=== PATIENT | male | born 1990 | race Caucasian/White ===

== ENCOUNTER 2020-05-16 05:50 | Emergency (ER) | payer OTHER, SELFPAY ==
--- NOTE | ~2020-05-16 | XR_ITS ---
EXAMINATION: XR CHEST CLINICAL INFORMATION: Shortness of breath COMPARISON: Chest radiographs 07/22/2017, 05/17/2017 TECHNIQUE: Portable upright AP view of the chest was obtained. FINDINGS: There is no airspace consolidation or groundglass opacity. No pneumothorax or pneumomediastinum or effusion. The heart is normal in size. The costophrenic sulci are clear. The hilar and mediastinal contours and bony structures are unremarkable. XR/XR chest 1V IMPRESSION: Unremarkable examination.
[2020-05-16 06:00] VITALS: BP 136/71; PULSE 75; RESP 18; TEMP 36.6; O2SAT 96; BMI 20.7
--- NOTE | 2020-05-16 06:25 | ED_ITS ---
HPI - Asthma General Chief Complaint: Asthma Stated Complaint: ASTHMA Time Seen by Provider: 05/16/20 06:23 Source: patient Mode of arrival: ambulatory History of Present Illness HPI Narrative: This is a 30-year-old male with history of asthma and poly substance use who presents with 2 hours of worsening shortness of breath not associated with fevers, chills, GI symptoms, or symptoms. Patient states that he was recently homeless for the past couple of days and has had limited ability to sleep and also endorses he used cocaine and heroin several hours ago. Related Data Allergies Allergy/AdvReac Type Severity Reaction Status Date / Time walnut Allergy Unknown SWELLING Unverified 11/23/19 15:58 Review of Systems Review of Systems: Pertinent positives and negatives as stated in HPI 10 point review of systems is otherwise negative. PMFSH Past Medical History Source: nursing notes reviewed Medical History Asthma Social History Social History Advance Directives: No Advance Directives Information Provided: No Physical Exam Vital Signs: Vital Signs: Last Vital Signs Temp 97.8 F 05/16/20 06:00 Pulse 75 05/16/20 06:00 Resp 18 05/16/20 06:00 BP 136/71 05/16/20 06:00 Pulse Ox 96 05/16/20 06:00 Body Mass Index 20.7 VITAL SIGNS: Reviewed. GENERAL: Well developed, well nourished, in no acute distress. HEAD: Normocephalic/atraumatic, EYES: PERRLA, EOMI EARS: Ext canals without abnormality, TMs non-bulging and non-erythematous NOSE: Nasal congestion bilaterally OROPHARYNX: no oral lesions noted, posterior pharynx clear, moist mucosa NECK: Supple, no adenopathy LUNGS: Bilateral expiratory wheezing without noted retractions or tachypnea. Sp O2<96> CARDIOVASCULAR: Regular rate and rhythm without noted murmurs ABDOMEN: Soft, non-tender, non-distended with bowel sounds. LEFT HAND: Cracked skin noted at the 5th inner MCP SKIN: Inspection of the skin reveals no rashes NEUROLOGIC: Drowsiness and oriented x 4. Course Course Course Narrative: This is a 30-year-old male with history and clinical presentation consistent with mild asthma exacerbation without noted increase in work of breathing. Possible pneumonia. -labs, albuterol, Solu-Medrol, COVID testing, chest x-ray, urine toxicology Signed out to Dr. Simpson
[2020-05-16] MEDS: Albuterol Sulfate (0.083%) 2.5 MG/3 ML VIAL.NEB 5 MG INHALE (06:44)
[2020-05-16 06:49] VITALS: PULSE 86; O2SAT 96
[2020-05-16 06:51] LABS: MANUAL DIFF FLAG NO
[2020-05-16 06:52] LABS: Basophils Absolute Auto 0.1 X10*3/uL (0.0-0.2); Basophils Percent Auto 0.7 % (0-2); Eosinophils Absolute Auto 1.2 X10*3/uL (0.0-0.4); Eosinophils Percent Auto 12.2 % (0-4); Hematocrit 40.2 % (42-52); Hemoglobin 13.8 g/dl (14.0-18.0); Imm Gran Abs Auto 0.02 X10*3/uL (0.00-0.03); Imm Gran Pct Auto 0.2 % (0.0-0.4); Lymphocytes Percent Auto 20.2 % (20-40); Mean Corpuscular HGB Conc 34.3 g/dl (31.0-36.0); Mean Corpuscular Hemoglobin 31.2 pg (27.0-33.0); Mean Corpuscular Volume 90.7 fL (80-98); Mean Platelet Volume 9.6 fL (9.4-12.4); Monocytes Absolute Auto 0.6 X10*3/uL (0.1-1.2); Monocytes Percent Auto 6.4 % (2-11); Neutrophils Percent Auto 60.3 % (45-73); Platelet Count 323 X10*3/uL (160-400); Red Blood Count 4.43 X10*6/uL (4.60-5.80); Red Cell Distribution Width 11.9 % (11.0-16.0)
[2020-05-16] MEDS: methylPREDNISolone Sod Succ 125 MG/2 ML VIAL IVPUSH (06:52)
--- NOTE | 2020-05-16 07:30 | PC.NURSE ---
report taken from gayla estrella pt here for asthma exac, recently out of jail. lung sounds w scant wheezing in lung gomez, getting breathing tx from resp. medicated w steroids per emar. pt intermittently falling asleep during assessment, asked to stay awake and breath regularly. pt admits to heroin use. requiring frequent reminder to breath d/t spo2 <92% on ra. provider aware.
[2020-05-16 07:32] LABS: Alanine Aminotransferase 10 U/L (0-40); Albumin Level 3.9 g/dL (3.5-5.0); Alkaline Phosphatase 89 U/L (39-117); Anion Gap 8 (12-20); Aspartate Amino Transferase 19 U/L (5-37); Bilirubin Total 0.4 mg/dL (0.0-1.0); Blood Urea Nitrogen 6 mg/dL (9-16); Calcium 8.8 mg/dL (8.4-10.2); Carbon Dioxide 32 mmol/L (22-29); Chloride 102 mmol/L (96-108); Creatinine Clr Calc Pharmacy 125.9; Estimated Glomerular Filt Rate > 60; Glucose Random 106 mg/dL (60-115); Potassium 3.6 mmol/L (3.3-5.1); Sodium 138 mmol/L (135-145); Total Protein 6.8 g/dL (6.5-8.0)
[2020-05-16 08:02] LABS: Influenza A PCR NEGATIVE (Negative); Influenza B PCR NEGATIVE (Negative); Resp Syncy Virus RNA Qual PCR NEGATIVE (Negative); SARS COV2 PCR INHOUSE NEGATIVE (Negative)
--- NOTE | 2020-05-16 08:55 | PC.NURSE ---
pt resting in stretcher, requiring frequent encouragement to wake up and breath, pt is arousable to tactile and verbal stimuli together, desats to low 90s w/o encouragement. pt resistant to wearing oxygen, agitated w this rn expressing he feels this rn is making assumptions about him. pt admitted to triage nurse use of heroin and cocaine. pt sts he is tired, this rn explaining that tired peoples respiratory drive does not slow down. pt frequently returning to sleep. provider aware. medical workup is negative.
--- NOTE | 2020-05-16 09:02 | PC.NURSE ---
provider would like to hold off on narcan for pt. pt given 1l by nc for comfort, spo2 sat up to 95% on 1l.
[2020-05-16 09:03] VITALS: BP 120/89; PULSE 68; RESP 12; O2SAT 90; O2SAT 91
[2020-05-16 09:06] VITALS: PULSE 66; O2SAT 96
[2020-05-16 11:10] VITALS: BP 123/71; PULSE 67; RESP 14; TEMP 36.7; O2SAT 95
--- NOTE | 2020-05-16 11:14 | MHC.CARE ---
Call from patient's mother. She said that her son has been trying to get into a detox and is looking for help. Information passed to Transmission Maintenance Supervisor who will follow up with patient.
--- NOTE | 2020-05-16 11:19 | MHC.RECOVSUP ---
? Reason for consult:Continuity of care o Current location: ED14 o Identified substance use concern: Heroin - Overdose - Support ? Intervention o o Community resources provided o Harm reduction discussion ? Plan: o Referral to [facility] o Patient to follow up with [facility] after discharge ? Additional information: pt states he's not ready pt under the influence of heroin and cocaine, last use was this morning. left patient with community resources for his addiction and homelessness.
[2020-05-16] MEDS: Naloxone HCl 2 MG/2 ML SYRINGE 1 MG IVPUSH (12:03)
--- NOTE | 2020-05-16 12:06 | PC.NURSE ---
Pt lethargic in bed. Respirations of 9. Very drowsy, nodding off during conversation. Unable to maintain SPo2 without supplemental oxygen. Medicated per MAY.
--- NOTE | 2020-05-16 12:14 | PC.NURSE ---
Pt awake and agitated. Explain to pt why he was medicated with narcan. Pt remains agitated, swearing to staff members. Pt in no apparent distress. Respirations even and unlabored at an appropriate rate. Skin color within normal limits for pt.
--- NOTE | 2020-05-16 12:35 | PC.NURSE ---
Pt continues to call this rn and other staff member names, refusing VS. Requested and given phone to call his mother. Pt is awake, alert, oriented x3. Yawning frequently, but in no apparent distress, rr even and unlabored.
--- NOTE | 2020-05-16 12:41 | PC.NURSE ---
Pt refusing to leave, states You narcanned me, you bitch , security at bedside.
--- NOTE | 2020-05-16 12:52 | PC.NURSE ---
pt has been discharged, resistant to leaving. had <1mg narcan iv. pt fully alert, sts feeling nauseous. no vomitting noted. pt yelling about being narcanned, pt explained that pt has not been arousable and requiring supplemental 02. pt refusing to leave although pt has been reevaled by provider and cleared after medical workup. pt given phone and assisted resources to find housing, which pt was complaining i have no where to go . pt mother on phone w this rn, pt allowing this rn to update her on course of care. mother sts she will be here to pick pt up. pt being escorted to waiting room w smooth steady gait w security. pt verbally abusive w this rn.
== END 2020-05-16 12:56 | disposition home or self-care (01) ==
PROVIDERS: Student in an Organized Health Care Education/Training Program; Emergency Provider Emergency Medicine Emergency Medical Services
DX: J45.31 Mild persistent asthma with (acute) exacerbation (principal); Z20.822 Contact with and (suspected) exposure to COVID-19
CPT/HCPCS: 0241U; 36415; 71045; 80053; 85025; 94640; 96374; 96375; 99285; J2930

== ENCOUNTER 2024-07-06 02:01 | Emergency (ER) | payer OTHER, SELFPAY ==
[2024-07-06] VITALS (9 sets, daily range): BP systolic 85–132; BP diastolic 46–95; PULSE 42–76; RESP 12–20; TEMP 36.2–36.7; O2SAT 94–100; BMI 21.3
--- NOTE | 2024-07-06 | ECG_ITS ---
Test Reason : OVERDOSE Blood Pressure : */* mmHG Vent. Rate : 43 BPM Atrial Rate : 43 BPM P-R Int : 144 ms QRS Dur : 90 ms QT Int : 446 ms P-R-T Axes : 63 65 47 degrees QTcB Int : 376 ms Marked sinus bradycardia Abnormal ECG No previous ECGs available Referred By: Generic ED Physician Electronically Signed By: Andrei Castorena
--- NOTE | 2024-07-06 09:19 | PC.NURSE ---
Assumed care of pt at 0700. Pt resting quietly in bed, mom at bedside, respirations even and unlabored, no increased wob/sob, appears in no distress, sinus sanju on playground monitor, HR 45s-50s, BP 90s/50s. MD Rowe made aware of pts vitals. Verbal order for 1L NS- pt refused IV placement and labs, MD Rowe aware. Pt verbalized he will try PO food/liquids. Ambulating to bathroom independently with steady gait. Denies cp/sob/dizziness. Placed back in bed, given snacks/fluids. BP cycling to monitor pt. Call huitron within reach, all needs met at this time.
--- NOTE | 2024-07-06 09:51 | ED_ITS ---
HPI - General Adult General Chief complaint: Overdose Stated complaint: OD Time Seen by Provider: 07/06/24 07:02 Source: patient Mode of arrival: EMS Limitations: no limitations History of Present Illness HPI narrative: This is a 34-year-old man with a past medical history of asthma, polysubstance use who is brought in by EMS after being found in a car minimally responsive status post Narcan administration x2. Patient endorses substance use. He is not forthcoming with details. He states no alcohol use. He states no SI/HI. He states no fever, headache, neck pain, chest pain, dyspnea, abdominal pain, urinary symptoms, nausea/vomiting, changes to bowel habits, back pain, syncope or trauma. He states no AH/VH. Related Data Previous Rx's ?Medication ?Instructions ?Recorded albuterol sulfate 90 mcg/actuation 2 inh inhalation Q4H Wheezing, 05/16/20 aerosol inhaler shortness of breath #8.5 grams prednisone 20 mg tablet 60 mg (3 x 20 mg) PO DAILY 5 days 05/16/20 #15 tabs Allergies Allergy/AdvReac Type Severity Reaction Status Date / Time walnut Allergy Unknown SWELLING Verified 07/06/24 02:22 Review of Systems Review of Systems: ROS as per HPI [facility] Past Medical History Medical History Asthma Social History Social History Alcohol intake: never Smoked in Last 30 Days: No Use of substances other than those prescribed or required for medical reasons: No Substance Use Type: Crack/Cocaine, Heroin and Marijuana Advance Directives: No Advance Directives Information Provided: Yes Physical Exam ED Vital Signs: Vital Signs - 24 hr 07/06/24 02:14 07/06/24 04:09 07/06/24 06:21 Temperature 97.2 F 97.2 F 97.2 F Pulse Rate 47 L 53 46 L Respiratory Rate 12 20 20 Blood Pressure 130/95 H 104/69 113/80 Pulse Oximetry 98 96 95 Oxygen Delivery Method Room Air Room Air Room Air 07/06/24 07:31 07/06/24 09:14 07/06/24 12:34 Temperature 98.0 F 98.0 F Pulse Rate 50 43 L 42 L Respiratory Rate 19 15 20 Blood Pressure 96/59 L 92/54 L 85/51 L Pulse Oximetry 95 95 94 Oxygen Delivery Method Room Air Room Air Room Air 07/06/24 16:40 Temperature Pulse Rate 76 Respiratory Rate 20 Blood Pressure 101/46 L Pulse Oximetry 96 Oxygen Delivery Method Room Air BMI result Body Mass Index 21.3 Gen: NAD, somnolent, awakes easily to voice, answering questions and following commands HEENT: NCAT, EOMI, normal conjunctiva CV: Bradycardic rate, regular rhythm Pulm: CTAB, no increased work of breathing GI: Soft, NTND, no rebound, guarding or rigidity MSK: BUE/BLE compartments are soft Neuro: CN 2-12 grossly intact, no motor or sensory deficits Medications Administered Discontinued Medications Generic Name Dose Route Start Last Admin Trade Name Quintonq PRN Reason Stop Dose Admin Sodium Chloride 1,000 mls @ 999 mls/hr 07/06/24 07:45 07/06/24 08:26 Ns IV 07/06/24 08:45 Not Given .Q1H1M LUBA Naloxone HCl 8 mg 07/06/24 16:00 07/06/24 16:37 Naloxone Hcl Nasal Take Home 4 Mg Jackson NOSTRILALT 07/06/24 16:01 8 mg ONCE ONE Administration Medical Decision Making Medical Decision Making MDM Narrative: Differential diagnosis includes, but is not limited to polysubstance use, unintentional overdose. Patient is afebrile and hemodynamically stable on room air albeit at times bradycardic and with soft blood pressures although mentating well and easily awakens to verbal stimuli. I suspect that this is secondary to recent opiate use, which resolves with period of observation and prior to discharge. Exam is benign and reassuring. On re-examination, patient is well-appearing and in no acute distress. ?Patient states symptoms have resolved. ?Patient is awake, alert, tolerating oral intake and ambulating independently with stable vital signs. He has been observed in the emergency room for several hours and has demonstrated hemodynamic stability and no sequelae status post Narcan administration. There is no indication for further emergent evaluation in this otherwise well-appearing patient as above. ?Patient is provided written and verbal instructions, educational materials, recommendations for outpatient follow-up, Narcan take-home package, strict return precautions and teach back is performed. ?Patient states understanding and agreement with plan of care. ?Patient is discharged home in stable and improved condition. Critical Care Time: A total of 45 minutes spent in direct patient care with coordinating critical resuscitation, procedures, reviewing records, discussing with consultants, reviewing labs, and/or managing patient. Admission/Observation Consideration of admission/observation: Escalation of care including admissi on/observation considered Consult Healthcare Provider Management of the patient was discussed with: Segment Block Layer I discussed with loans consultant addiction medicine, Natalia Parham, and patient ultimately refused consult. He denies wanting helping with substance use. Lab Data MDM Lab Attestation statement: I reviewed the patient's lab results. Urine drug screen positive for opiates, fentanyl and cocaine Labs: Lab Results 07/06/24 Range/Units 16:22 Urine Opiates Screen POSITIVE H (Not Detect) Ur Buprenorphine Scrn Not Detected (Not Detect) ng/mL Ur Oxycodone Screen Not Detected (Not Detect) ng/mL Urine Methadone Screen Not Detected (Not Detect) ng/mL Urine Fentanyl Screen POSITIVE H (Not Detect) Ur Barbiturates Screen Not Detected (Not Detect) Ur Phencyclidine Scrn Not Detected (Not Detect) Ur Amphetamines Screen Not Detected (Not Detect) U Benzodiazepines Scrn Not Detected (Not Detect) Urine Cocaine Screen POSITIVE H (Not Detect) U Marijuana (THC) Screen Not Detected (Not Detect) Independent Interpretation I performed an independent interpretation of an: EKG Interpretation: Her my interpretation, EKG demonstrates a sinus bradycardia at 43 beats per minute, W[place] 144, QRS 90, QTC 376, no STEMI Discharge Plan Discharge Clinical Impression: Drug overdose Patient Disposition: Home, Self-Care Instructions: Adult Overdose (ED) Additional Instructions: Overdose You were seen in our Emergency Department for an overdose today. You received narcan in order to reverse the effects of overdose. Narcan only lasts about 45 min to 1 hour in the system. You may have been given narcan to take home with you today, please keep it near you if you are going to use again, so others can use it if needed.? The number one risk for fatal overdose is using alone? [employer] is a / hotline where you can be on the phone with someone while you use, and they can call for help if they suspect an overdose: [phone] Things to look out for when you leave include severe vomiting or diarrhea, headaches, muscle cramps, fever, coughing, chest pain, or if you feel so short of breath you cannot walk to the bathroom. Please seek care and return any time for worsening symptoms.? You may have been provided with safer injection?items, please take time to take care of YOU and your health. Use new supplies whenever possible to lessen the chances of infections and other illnesses.? If you need more supplies, please go [facility],? [address] [place] [address] OR you can call or text to coordinate delivery of safer supplies. If you decide you want to stop or cut down on how much you?re using, please call the numbers on the list provided to you or you can come to our outpatient Addiction Treatment office [facility] (M-F 9am-5p) [address] [place] [address], [facility] [address] [place], [place]. [phone] Prescriptions: No Action prednisone 20 mg tablet 60 mg PO DAILY 5 Days Qty: 15 0RF albuterol sulfate 90 mcg/actuation HFA aerosol inhaler 2 inh inhalation Q4H Qty: 8.5 0RF Print Language: Uzbek
--- NOTE | 2024-07-06 12:36 | PC.NURSE ---
Pt BP now 80s/50s, asymptomatic. MD Rowe aware. This RN sat with pt and provided emotional support for IV placement d/t anxiety. Pt confused to decline IV placement- unable to express to this RN what he is anxious about. MD Rowe made aware. Pt states he will drink/eat PO but falls back asleep easily. Pt was able to drink 2 cans of nakia jose guadalupe, encouraged to drink more fluids. Provider aware of low HR and BPs.
--- NOTE | 2024-07-06 15:07 | PC.NURSE ---
6023 late entry: attempted to gain IV access on pt, pt continues to refuse to have an IV at this time. informed of risks of low BP and HR and need for further intervention to stabilize BP through IV access. Dr Rowe made aware of pts refusal. no new orders
--- NOTE | 2024-07-06 15:42 | MHC.EDTECH ---
pt refusing bloodwork, rn and provider aware
[2024-07-06] MEDS: Naloxone HCl Nasal TAKE HOME 4 MG SPRAY 8 MG NOSTRILALT (16:37)
[2024-07-06 16:39] LABS: Amphetamine Screen Urine Not Detected (Not Detect); Barbiturates, Urine Not Detected (Not Detect); Benzodiazepines Screen Urine Not Detected (Not Detect); Buprenorphine Scr Not Detected (Not Detect); Cannabinoid Screen Urine Not Detected (Not Detect); Cocaine Screen Urine POSITIVE (Not Detect); Fentanyl, urine POSITIVE (Not Detect); Methadone Screen, Urine Not Detected (Not Detect); Opiate Screen Urine POSITIVE (Not Detect); Oxycodone Screen Urine Not Detected (Not Detect); Phencyclidine Screen Urine Not Detected (Not Detect)
== END 2024-07-06 16:57 | disposition home or self-care (01) ==
PROVIDERS: Emergency Provider Emergency Medicine; PCP Family Medicine
DX: T40.1X1A Poisoning by heroin, accidental (unintentional), initial encounter (principal); R40.4 Transient alteration of awareness; Y92.89 Other specified places as the place of occurrence of the external cause; F14.10 Cocaine abuse, uncomplicated; R00.1 Bradycardia, unspecified; Z51.81 Encounter for therapeutic drug level monitoring; Z79.899 Other long term (current) drug therapy; Z71.51 Drug abuse counseling and surveillance of drug abuser
CPT/HCPCS: 80307; 93005; 99285; S9485

== ENCOUNTER → 2024-07-06 02:20 | Outpatient (BNV) | payer OTHER, SELFPAY | PROVIDERS: Emergency Provider Emergency Medicine; PCP Family Medicine; Visit Provider Internal Medicine Cardiovascular Disease | DX: R00.1 Bradycardia, unspecified (principal) | CPT/HCPCS: 93010 ==